=== PATIENT | female | born 1995 | race Caucasian/White ===

== ENCOUNTER 2016-09-23 11:26 | Emergency (ER) | payer BC ==
[2016-09-23 11:33] VITALS: BP 144/80
[2016-09-23] MEDS ORDERED: NORCO 7.5/325 PO ONE (12:01)
[2016-09-23] MEDS ORDERED: MARCAINE 0.5% INFILTRATI ONE (12:02)
--- NOTE | 2016-09-23 22:47 | Emergency Department Report ---
Entered by MILTON ELI, acting as scribe for LEMO MYRICK NP. - General Chief complaint: Urogenital-Female Stated complaint: BOIL ON VAG/PAIN Time Seen by Provider: 09/23/16 11:35 Source: patient Mode of arrival: Ambulatory Limitations: No Limitations - History of Present Illness Initial comments: 21 y/o female that is non-toxic, non ill appearing, in no acute distress with no signicant PMHx presents to the ED c/o an abscess on right vaginal area that began 4 days ago. Associated symptoms include pain to affected area, but she denies discharge, fever, chills, headache, abdominal pain, nausea, vomiting, dysuria, urgency, and frequecy. Rates pain a 10/10 in severity. Denies any possible exposure to an STD. Notes she's sexually active. Patient was driven to the ED by her boyfriend. LMP 09/16/2016. NKDA. SOUSA complaint: abscess/boil (right side of vaginal area) Onset/Timin -: days(s) Tetanus Up to Date: no Location: genitals (right labia majora) Severity: moderate Severity scale (0 -10): 10 Consistency: constant Improves with: none Worsens with: none Context: none Associated symptoms: denies other symptoms, other (pain to affected area) Treatments Prior to Arrival: none - Related Data Previous Rx's Medication Instructions Recorded Last Taken Type Cephalexin [Keflex] 500 mg PO Q12HR 7 Days 09/23/16 Unknown Rx HYDROcodone/APAP 7.5-325 [[place] 1 each PO Q8HR PRN #12 tablet 09/23/16 Unknown Rx 7.5/325] Allergies Allergy/AdvReac Type Severity Reaction Status Date / Time No Known Allergies Allergy Unverified 09/23/16 11:29 Abscess Boil HPI - HPI Chief Complaint: Urogenital-Female Stated Complaint: BOIL ON VAG/PAIN Time Seen by Provider: 09/23/16 11:35 Duration: 4 Days Location: Other (right labia) Severity: Moderate (10/10) History: Yes Pain (to affected area on right side of vagina), No Fever, No Purulent Drainage, No Numbness, No Foreign Body, No Previous History, No Insect Bite Home Medications: Previous Rx's Medication Instructions Recorded Last Taken Type Cephalexin [Keflex] 500 mg PO Q12HR 7 Days 09/23/16 Unknown Rx HYDROcodone/APAP 7.5-325 [[place] 1 each PO Q8HR PRN #12 tablet 09/23/16 Unknown Rx 7.5/325] Allergies/Adverse Reactions: Allergies Allergy/AdvReac Type Severity Reaction Status Date / Time No Known Allergies Allergy Unverified 09/23/16 11:29 ED Review of Systems ROS: Stated complaint: BOIL ON VAG/PAIN Other details as noted in HPI Comment: All other systems reviewed and negative Constitutional: no symptoms reported. denies: chills, fever Respiratory: no symptoms reported. denies: cough, shortness of breath Cardiovascular: as per HPI. denies: chest pain Gastrointestinal: as per HPI. denies: abdominal pain, nausea, vomiting Genitourinary: as per HPI, other (abscess on right labia). denies: urgency, dysuria, frequency, discharge Skin: as per HPI. denies: rash Neurological: as per HPI. denies: headache ED Past Medical Hx - Past Medical History Previous Medical History?: No - Surgical History Past Surgical History?: No - Social History Smoking Status: Current Some Day Smoker Substance Use Type: Alcohol, Marijuana, Non Opiate Pain - Medications Home Medications: Home Medications Medication Instructions Recorded Confirmed Last Taken Type Cephalexin [Keflex] 500 mg PO Q12HR 7 Days 09/23/16 Unknown Rx HYDROcodone/APAP 7.5-325 [[place] 1 each PO Q8HR PRN #12 tablet 09/23/16 Unknown Rx 7.5/325] ED Physical Exam - General Limitations: No Limitations General appearance: alert, in no apparent distress - Head Head exam: Present: atraumatic, normocephalic - Eye Eye exam: Present: normal appearance, EOMI Pupils: Present: normal accommodation - ENT ENT exam: Present: normal exam, mucous membranes moist - Neck Neck exam: Present: normal inspection, full ROM - Respiratory Respiratory exam: Present: normal lung sounds bilaterally. Absent: respiratory distress - Cardiovascular Cardiovascular Exam: Present: regular rate, normal rhythm - GI/Abdominal GI/Abdominal exam: Present: soft, normal bowel sounds. Absent: distended, tenderness, guarding, rebound - External exam: Present: normal external exam (patient's boyfriend and a female manager hospitality present during external exam), erythema (right labia majora area), swelling (5 cm firm, erythematous minora abscess on right inferior labia majora that is TTP), other (5 cm firm, erythematous majora abscess on right inferior labia majora that is TTP, but no Bartholin's cyst present). Absent: lesions, lacerations, ecchymosis, bleeding - Extremities Exam Extremities exam: Present: normal inspection, full ROM - Back Exam Back exam: Present: normal inspection, full ROM - Neurological Exam Neurological exam: Present: alert, oriented X3, CN II-XII intact, normal gait - Psychiatric Psychiatric exam: Present: normal affect, normal mood - Skin Skin exam: Present: warm, dry, intact. Absent: rash ED Course Vital Signs 09/23/16 11:30 Temperature 98.9 F Pulse Rate 86 Respiratory 20 Rate Blood Pressure 144/80 O2 Sat by Pulse 100 Oximetry - I & D Right Vagina Type of Procedure: Complex Site: Labia Majora Blade Size: 11 I & D Procedure: betadine prep, sterile drapes applied, sterile dressing applied , gauze wick placed Progress: Under sterile procedure, I used Betadine to cleanse the area with sterile 4 x 4' s. I then used a 26-gauge 1-05/14 hypo-to inject 6 mL of 0.5% Marcaine plain. I then used Betadine to clean the area again with 4 x 4. I did use an 11 blade to make an incision of 2 cm to the site. About 2 mL of purulent drainage has been noted with minimal bleeding. I then used 0.9% normal saline to flush the area with a total number of 20 mL used. I then used Betadine again to clean the area with 4 x 4. I packed the incision with one fourth iodoform. I then placed a sterile 4 x 4 dressing and tape to the incision and drainage. Patient does not procedure well with no signs of distress noted. ED Medical Decision Making - Medical Decision Making Ed course: This is a 21-year-old female that presents with abscess in the right inferior labial majora 1- after physical exam, patient received [place] 7.5 mg for an I&D of the abscess to the labia majora 2- under sterile procedure, a 2 cm incision was obtained with pustular drainage and minimal bleeding. Patient tolerated procedure well with no complications noted. 3- patient also received Keflex 500 mg every 12 for 7 days and [place] 7.5 mg at the time of discharge. I instructed the patient not use machinery while taking [place] due to positive sedation. 4- I instructed the patient to return back to the ER at [facility] in 2 days for a packing removal and reassessment of the incision and drainage. 5- at the time of discharge the patient denies toxic or ill in appearance. No signs of distress noted. Patient agrees with discharge treatment and plan of care. Was instructed to follow-up with her primary care doctor in 3-5 days. No further questions noted by the patient. Critical care attestation.: If time is entered above; I have spent that time in minutes in the direct care of this critically ill patient, excluding procedure time. ED Disposition Clinical Impression: Abscess of labia majora Disposition: DISCHARGED TO HOME OR SELFCARE Is pt being admited?: No Does the pt Need Aspirin: No Condition: Stable Instructions: Abscess Incision and Drainage (ED), Acute Wound Care (ED), Abscess (ED) Additional Instructions: Take full course of antibiotics as prescribed. Take [place] as prescribed as needed for pain. Do not operate heavy machinery due to positive sedation. Report back to [facility] emergency department for packing removal and reevaluation of the incision and drainage. Follow-up with her primary care doctor in 3-5 days or if symptoms worsen report back to the emergency room/PCP. Prescriptions: Cephalexin [Keflex] 500 mg PO Q12HR 7 Days HYDROcodone/APAP 7.5-325 [[place] 7.5/325] 1 each PO Q8HR PRN #12 tablet PRN Reason: Pain Referrals: PRIMARY CARE, [Primary Care Provider] - 3-5 Days [facility] [Outside] - 3-5 Days [facility] [Outside] - 3-5 Days CAROLINA IBRAHIM MD [Staff Physician] - 3-5 Days Forms: Work/School Release Form(ED) This documentation as recorded by the ALCIRA turner JASMINE,accurately reflects the service I personally performed and the decisions made by ,ELMO MYRICK, CHIEF INFORMATION OFFICER.
== END 2016-09-23 13:25 | disposition home or self-care (01) ==
LOC: ED 11:26
DX: N76.4 Abscess of vulva (principal); F17.200 Nicotine dependence, unspecified, uncomplicated; F12.10 Cannabis abuse, uncomplicated

== ENCOUNTER 2016-09-25 05:41 | Emergency (ER) | payer BC ==
[2016-09-25 06:14] VITALS: BP 130/83
--- NOTE | 2016-09-25 12:09 | Emergency Department Report ---
Entered by GREGOR VAZQUEZ, acting as scribe for ELMO MYRICK NP. Abscess Boil HPI - HPI Chief Complaint: Urogenital-Female Stated Complaint: PACKING REMOVAL Time Seen by Provider: 09/25/16 11:17 Duration: 2 Days Location: Other (right labia majora) Severity: Mild HPI: 21 y/o female , nontoxic, well nourished in appearance, no acute signs of distress, presents needing packing removal from an I&D to the right labia majora performed 2 days ago at [facility]. Pt is still taking full course antibiotics and hydrocodon as needed. Sx include constant, aching, 7/10 pain to the right labia mejora but denies drainage, puss, fever, chiils, PRADO and chest pain. Home Medications: Previous Rx's Medication Instructions Recorded Last Taken Type Cephalexin [Keflex] 500 mg PO Q12HR 7 Days 09/23/16 Unknown Rx HYDROcodone/APAP 7.5-325 [[place] 1 each PO Q8HR PRN #12 tablet 09/23/16 Unknown Rx 7.5/325] Allergies/Adverse Reactions: Allergies Allergy/AdvReac Type Severity Reaction Status Date / Time No Known Allergies Allergy Unverified 09/23/16 11:29 ED Review of Systems ROS: Stated complaint: PACKING REMOVAL Other details as noted in HPI Comment: All other systems reviewed and negative Constitutional: denies: chills, fever Eyes: denies: eye pain, eye discharge, vision change ENT: denies: ear pain, throat pain Respiratory: denies: shortness of breath Cardiovascular: denies: chest pain Musculoskeletal: denies: back pain, joint swelling, arthralgia Skin: denies: rash, lesions Neurological: denies: headache ED Past Medical Hx - Past Medical History Previous Medical History?: No - Surgical History Past Surgical History?: No - Social History Smoking Status: Current Some Day Smoker Substance Use Type: None - Medications Home Medications: Home Medications Medication Instructions Recorded Confirmed Last Taken Type Cephalexin [Keflex] 500 mg PO Q12HR 7 Days 09/23/16 Unknown Rx HYDROcodone/APAP 7.5-325 [[place] 1 each PO Q8HR PRN #12 tablet 09/23/16 Unknown Rx 7.5/325] ED Abscess Boil Physical Exam - Exam General: Vital signs noted. No distress. Alert and acting appropriately. GENERAL: The patient is a well-developed, well-nourished male in no apparent distress. Patient is alert and oriented x3. VITAL SIGNS: Stable HEENT: Head is normocephalic and atraumatic. Extraocular muscles are intact. Pupils are equal, round, and reactive to light and accommodation. Nares appeared normal. Mouth is well hydrated and without lesions. Mucous membranes are moist. Posterior pharynx clear of any exudate or lesions. NECK: Supple. No carotid bruits. No lymphadenopathy or thyromegaly. LUNGS: Clear to auscultation. HEART: Regular rate and rhythm without murmur. ABDOMEN: Soft, nontender, and nondistended. Positive bowel sounds. No hepatosplenomegaly was noted. EXTREMITIES: Without any cyanosis, clubbing, rash, lesions or edema. NEUROLOGIC: Cranial nerves II through XII are grossly intact. PSYCHIATRIC: Normal affect with no suicidal or homicidal ideations. SKIN: 2 cm open wound status post I&D. No signs of pus or drainage noted. No swelling. Front/Back of Body, Lg (Color): 1 - 2 cm open wound status post I/D Size: 2 cm Exam: Yes Normal Neurologic Exam, No Tenderness, No Fluctuance, No Surrounding Cellulites/Erythema, No Crepitation, No Heart Murmur Exam: 2cm abscess to the right labia majora, I&D 2 days ago, packing removed today, no erthema, no swelling, no purulent drainge, no tenderness, pt tolerated well. ED Course Vital Signs 09/25/16 06:06 Temperature 98.9 F Pulse Rate 87 Respiratory 18 Rate Blood Pressure 130/83 O2 Sat by Pulse 100 Oximetry Critical care attestation.: If time is entered above; I have spent that time in minutes in the direct care of this critically ill patient, excluding procedure time. ED Medical Decision Making - Medical Decision Making Ed course: This is a 21-year-old female that presents with packing removal in the labia majora status post I&D 2 days ago 1- upon removal of iodoform packing there was no pus or drainage noted. Patient 's procedure well with no signs of acute distress noted. 2- patient was instructed to finish full course of antibiotics and take [place] for pain as needed. 3- at the time of discharge patient was instructed to keep area clean and to wash the area with soap and water and reapply sterile 4 x 4 with tape dressing. 4- I notified the patient to observe signs and symptoms of pus, drainage, increased redness, swelling, fever or chills and to report to emergency room if the symptoms are present. ED Disposition Clinical Impression: Wound check, abscess, Abscess packing removal Disposition: DISCHARGED TO HOME OR SELFCARE Is pt being admited?: No Does the pt Need Aspirin: No Condition: Stable Instructions: Acute Wound Care (ED) Additional Instructions: Observe signs and symptoms of pus, drainage, increased redness, swelling, fever or chills and to report to emergency room if the symptoms are present. Continue taking antibiotic as prescribed if his full course. Take [place] as prescribed as needed for pain. Referrals: PRIMARY MD RAFI [Primary Care Provider] - 3-5 Days ALEXSANDRA MTZ MD [Referring] - 3-5 Days [facility] [Outside] - 3-5 Days [facility] [Outside] - 3-5 Days Forms: Work/School Release Form(ED) This documentation as recorded by the TAYLOR turner MATHEW,accurately reflects the service I personally performed and the decisions made by me,ELMO MYRICK, MAGALIS.
== END 2016-09-25 12:12 | disposition home or self-care (01) ==
LOC: ED 05:41
DX: Z48.01 Encounter for change or removal of surgical wound dressing (principal); F17.200 Nicotine dependence, unspecified, uncomplicated